=== PATIENT | female | born 1955 | race Caucasian/White ===

== ENCOUNTER → 2016-08-23 | Outpatient (CLI) | payer BC ==
--- NOTE | 2016-08-23 18:00 | PCVCIMAG ---
APPROVED REPORT Study performed: 08/23/2016 07:50:28 EXAM: Comprehensive 2D, Doppler, and color-flow Echocardiogram Status: routine Other Information Study Quality: Adequate Indications Dyspnea Chest Pain 2D Dimensions IVSd: 14.52 (7-11mm) LVDd: 31.57 mm PWd: 13.83 (7-11mm) LVDs: 24.76 (25-40mm) Left Atrium: 32.93 (27-40mm) Aortic Root: 29.60 mm LV Single Plane 4CH: 62.28 % LV Single Plane 2CH: 64.80 %Casas's LVEF: 63.54 % Biplane EF: 62.8 % Volumes Left Atrial Volume (Systole) Single Plane 4CH: 32.84 mLSingle Plane 2CH: 38.54 mL LA ESV Index: 17.00 mL/m2 Aortic Valve AoV Peak Mingo.: 1.23 m/s AO Peak Gr.: 6.06 mmHgLVOT Max P.69 mmHg LVOT Max V: 1.08 m/s Mitral Valve E/A Ratio: 0.9 MV Decel. Time: 297.96 ms MV E Max Mingo.: 0.50 m/s MV A Mingo.: 0.55 m/s IVRT: 138.41 ms TDI E/Lateral E': 8.40E/Medial E': 11.20 Pulmonary Valve PV Peak Mingo.: 0.84 m/sPV Peak Gr.: 2.84 mmHg Pulmonary Vein P Vein S: 0.30 m/sP Vein A: 0.33 m/s P Vein D: 0.44 m/sP Vein A Dur.: 159.2 msec P Vein S/D Ratio: 0.68 Left Ventricle The left ventricle is normal size. There is normal LV segmental wall motion. Moderate concentric left ventricular hypertrophy. Left ventricular systolic function is normal. The left ventricular ejection fraction is within the normal range. LVEF is 60-65%. Grade I - abnormal relaxation pattern. Right Ventricle The right ventricle is normal size. The right ventricular systolic function is normal. Atria The left atrium size is normal. The right atrium size is normal. Aortic Valve The aortic valve is normal in structure. No aortic regurgitation is present. There is no aortic valvular stenosis. Mitral Valve The mitral valve is normal in structure. There is no mitral valve regurgitation noted. No evidence of mitral valve stenosis. Tricuspid Valve The tricuspid valve is normal in structure. There is no tricuspid valve regurgitation noted. Pulmonic Valve The pulmonary valve is normal in structure. There is no pulmonic valvular regurgitation. Great Vessels The aortic root is normal in size. IVC is normal in size and collapses with >50% inspiration Pericardium There is no pericardial effusion. <Conclusion> The left ventricle is normal size. Moderate concentric left ventricular hypertrophy. Left ventricular systolic function is normal. The left ventricular ejection fraction is within the normal range. Grade I - abnormal relaxation pattern. The right ventricle is normal size. The left atrium size is normal. The aortic valve is normal in structure. The mitral valve is normal in structure. There is no tricuspid valve regurgitation noted. There is no pericardial effusion.
== END | disposition home or self-care (01) ==
LOC: PCVCIMAG 07:44
PROVIDERS: ATTEND Internal Medicine Cardiovascular Disease
DX: R06.00 Dyspnea, unspecified (principal); R07.9 Chest pain, unspecified
CPT/HCPCS: 93306